=== PATIENT | female | born 1970 | race Caucasian/White ===

== ENCOUNTER 2020-07-29 08:56 | Inpatient (IN) | payer OTHER ==
[~2020-07-29] VITALS: Ht 162.6 cm; Wt 99.0 kg
[2020-07-29 09:15] LABS: BASOPHILS ABSOLUTE AUTO 0.06 K/mm3 (0.00-0.23); BASOPHILS PERCENT AUTO 0 % (0-2); EOSINOPHILS ABSOLUTE AUTO 0.07 K/mm3 (0.00-0.68); EOSINOPHILS PERCENT AUTO 0 % (0-6); Hemoglobin 8.7 g/dL (11.5-16.0); IMMATURE GRAN ABSOLUTE AUTO 0.09 K/mm3 (0.00-0.10); IMMATURE GRAN PERCENT AUTO 1 % (0-1); LYMPHOCYTES ABSOLUTE AUTO 1.34 K/mm3 (0.84-5.20); LYMPHOCYTES PERCENT AUTO 8 % (21-46); MONOCYTES ABSOLUTE AUTO 1.09 K/mm3 (0.16-1.47); MONOCYTES PERCENT AUTO 7 % (4-13); Mean Corpuscular HGB 19.8 pg (26.0-34.0); Mean Corpuscular HGB Conc 28.1 g/dL (31.5-36.5); Mean Corpuscular Volume 71 fL (80-100); Mean Platelet Volume 8.6 fL (9.1-12.4); NEUTROPHILS PERCENT AUTO 84 % (41-73); Platelet Count 430 K/mm3 (150-400); RDW Coefficient Variation 17.7 % (11.7-14.2); RDW Standard Deviation 43.8 fL (35.1-46.3); White Blood Cell Count 16.55 K/mm3 (4.00-11.30)
[2020-07-29 09:29] LABS: International Normalized Ratio 0.98; Prothrombin Time Results 10.5 Sec (9.7-11.5)
[2020-07-29 09:46] LABS: Alanine Aminotransfer (ALT/SGP 35 U/L (12-78); Albumin, Blood 3.8 g/dL (3.4-5.0); Albumin/Globulin Ratio 0.9 (0.8-1.8); Alk Phos 74 U/L (50-136); Anion Gap 3 mmol/L (6-16); Aspartate Aminotrans (AST/SGOT 19 U/L (12-37); Bilirubin, Total 0.3 mg/dL (0.1-1.0); Blood Urea Nitrogen 11 mg/dL (8-24); Bun/Creatinine Ratio 21.4 (12.0-20.0); CO2, Blood 25 mmol/L (21-32); Calcium, Blood 8.8 mg/dL (8.5-10.1); Chloride, Blood 109 mmol/L (98-108); Creatinine, Blood 0.52 mg/dL (0.40-1.00); Globulin, Blood 4.2 g/dL (2.2-4.0); Glomerular Filtration Rate >60 (60-); Glucose, Blood 111 mg/dL (70-99); Sodium, Blood 137 mmol/L (136-145)
[2020-07-29 10:33] LABS: Source, Urine Catheter
[2020-07-29 10:38] LABS: Bilirubin, Urine Neg (Neg); Blood, Urine 1+ (Neg); Glucose Qualitative, Urine Neg (Neg); Ketones, Urine 2+ (Neg); Leukocyte Esterase, Urine Neg (Neg); Nitrite, Urine Neg (Neg); Protein, Urine 2+ (Neg); Urobilinogen, Urine NORM (Normal)
[2020-07-29 10:50] LABS: Appearance, Urine Clear (Clear); Color, Urine Yellow (P-Yellow)
[2020-07-29 10:51] LABS: Squamous Epithelial Cells Few /hpf (Few)
[2020-07-29 10:52] LABS: Bacteria Mod /hpf; Mucus Light (0-Heavy)
[2020-07-29 10:53] LABS: U Amphetamine Screen Not Detected; U Barbituate Screen Not Detected; U Benzodiazapine Screen Not Detected; U Buprenorphine Screen Not Detected; U Cannabinoids Screen Not Detected; U Cocaine Screen Not Detected; U Methadone Screen Not Detected; U Methamphetamine Screen Not Detected; U Opiates Screen Not Detected; U Oxycodone Screen Not Detected; U Phencyclidine Screen Not Detected; U Propoxyphene Screen Not Detected
[2020-07-29] MEDS ORDERED: EFFEXOR XR150 MG PO (11:35)
[2020-07-29] MEDS ORDERED: SYNTHROID88 MCG PO (11:36)
[2020-07-29] MEDS ORDERED: BUPROPION XL150 M1 PO (11:36)
[2020-07-29 11:38] LABS: Creatine Kinase MB 1.3 ng/mL (0.0-3.6); Creatine Kinase MB Index 0.9 (0.0-4.0)
[2020-07-29 11:47] LABS: IMMATURE RETIC FRACTION 36.4 % (2.3-16.0); RETICULOCYTE ABSOLUTE 0.1048 M/mm3 (0.0200-0.1100); RETICULOCYTE COUNT PERCENT 2.41 % (0.50-2.50)
[2020-07-29 12:07] LABS: Percent Saturation 4.2 % (15.0-50.0)
--- NOTE | 2020-07-29 18:50 | NUR ---
SHIFT SUMMARY ALEE ARRIVED AROUND 1315 FROM ER. MOM VISITED THIS AFTERNOON. PT COMPLAINED OF HEADACHE AND GOT RECTAL TYLENOL AND GOT IV ZOFRAN FOR NAUSEA TO GOOD EFFECT. EYES NOT TRACKING, BUT DIFFICULT TO ASSESS DUE TO PT'S LETHARGY. PT UNABLE TO MOVE OR SENSE L SIDE. BUTTOCKS HAVE RASH, PT SAYS IT IS HER BASELINE FOLICULITIS. PT ORIENTED BUT FORGETFUL; SLURRED SPEECH. STRICT NPO UNTIL SPEECH EVALS HER. STARTED OUT AFTERNOON VERY LETHARGIC BUT HAS WOKEN UP MORE THIS EVENING. PER VERBAL ORDER FROM DR MCNAIR, PT NEEDS A ONE TIME ASPIRIN DOSE OF [address] FROM 2100 TONIGHT IS NEGATIVE FOR HEMHORRAGE. IF IT IS NEGATIVE, ALSO START ASPIRIN 81MG DAILY EITHER PO IF SPEECH ALLOWS OR RECTALLY. JOYA INTACT AND DRAINING. CALL LIGHT IN REACH, FREQUENT CHECKS, WCTM
[2020-07-30 04:15] LABS: BASOPHILS ABSOLUTE AUTO 0.09 K/mm3 (0.00-0.23); BASOPHILS PERCENT AUTO 1 % (0-2); EOSINOPHILS ABSOLUTE AUTO 0.27 K/mm3 (0.00-0.68); EOSINOPHILS PERCENT AUTO 2 % (0-6); Hematocrit 27.3 % (33.0-51.0); Hemoglobin 7.3 g/dL (11.5-16.0); IMMATURE GRAN ABSOLUTE AUTO 0.06 K/mm3 (0.00-0.10); IMMATURE GRAN PERCENT AUTO 1 % (0-1); LYMPHOCYTES ABSOLUTE AUTO 1.57 K/mm3 (0.84-5.20); LYMPHOCYTES PERCENT AUTO 14 % (21-46); MONOCYTES ABSOLUTE AUTO 0.99 K/mm3 (0.16-1.47); MONOCYTES PERCENT AUTO 9 % (4-13); Mean Corpuscular HGB 19.3 pg (26.0-34.0); Mean Corpuscular HGB Conc 26.7 g/dL (31.5-36.5); Mean Corpuscular Volume 72 fL (80-100); Mean Platelet Volume 8.9 fL (9.1-12.4); NEUTROPHILS ABSOLUTE AUTO 8.29 K/mm3 (1.96-9.15); NEUTROPHILS PERCENT AUTO 74 % (41-73); NRBC ABSOLUTE 0.05 K/mm3 (0.00-0.02); NRBC Auto 0.4 /100 WBC (0.0-0.2); Platelet Count 380 K/mm3 (150-400); RDW Coefficient Variation 18.1 % (11.7-14.2); RDW Standard Deviation 46.4 fL (35.1-46.3); Red Blood Cell Count 3.79 M/mm3 (3.80-5.20); White Blood Cell Count 11.27 K/mm3 (4.00-11.30)
--- NOTE | 2020-07-30 04:36 | NUR ---
ASSOCIATE BIOLOGICAL SALES SUMMARY PT NOT GIVEN HER [address] SCAN RESULTS TO RULE OUT A BLEED DID NOT COME BACK THIS SHIFT. PT HAS BEEN LETHARGIC DURING THIS SHIFT BUT IS AROUSABLE WITH SPEECH. THE PT RAMBLES WITH INCOHERENT SPEECH THAT IS UNRELATED TO THE CONVERSATION. LEFT SIDE IS STILL FLACCID BUT PT HAS POSITIVE BABINSKI REFLEX WHEN THE BOTTOM OF HER LEFT FOOT IS BRUSHED. PT HAS RIGHT SIDED GAZE AND HER VISION APPEARS SEVERELY IMPAIRED SHE CANNOT MAKE OBJECTS IN FRONT OF HER. PT HAS DENIED ANY PAIN THIS SHIFT AND HAD SOME MILD NAUSEA W NO EMESIS AT THE START OF THE SHIFT. PT HAS HAD NO PROBLEMS WITH HER SECRETIONS AND IS BREATHING UNLABORED. PT SLEPT MOST OF THE NIGHT W CALL LIGHT ON R SIDE, ROMINA.
[2020-07-30 04:39] LABS: Alanine Aminotransfer (ALT/SGP 24 U/L (12-78); Albumin/Globulin Ratio 0.9 (0.8-1.8); Alk Phos 59 U/L (50-136); Anion Gap 6 mmol/L (6-16); Aspartate Aminotrans (AST/SGOT 14 U/L (12-37); Bilirubin, Total 0.4 mg/dL (0.1-1.0); Blood Urea Nitrogen 9 mg/dL (8-24); Bun/Creatinine Ratio 13.8 (12.0-20.0); CHOL/HDL RATIO 4.3; CO2, Blood 24 mmol/L (21-32); Calcium, Blood 7.3 mg/dL (8.5-10.1); Chloride, Blood 114 mmol/L (98-108); Cholesterol 163 mg/dL (50-200); Creatinine, Blood 0.65 mg/dL (0.40-1.00); Globulin, Blood 3.5 g/dL (2.2-4.0); Glomerular Filtration Rate >60 (60-); Glucose, Blood 96 mg/dL (70-99); HDL Cholesterol 38 mg/dL (>39); LDL/HDL RATIO 2.6; Low Density Lipoprotein Chol 99 mg/dL (0-110); Potassium, Blood 3.4 mmol/L (3.5-5.5); Sodium, Blood 144 mmol/L (136-145); Total Protein, Blood 6.5 g/dL (6.4-8.2); Triglycerides 129 mg/dL (30-160); Very Low Density Lipoprot Chol 25 mg/dL (6-32)
--- NOTE | 2020-07-30 10:56 | NUR ---
CARE COORDINATION REFERRAL - ADMIT: 07/29/20 DISCHARGE: DX: STROKE CC: ANDREAS CALL: RESIDENCE: HOME CAREGIVER: SELF DX: HX ALCOHOLISM, HYPERLIPIDEMIA, PTSD, DEPRESSION, ANXIETY, SEE LIST DME: NONE CCM: NONE HOME HEALTH: NONE
--- NOTE | 2020-07-30 12:08 | NUR ---
PATIENT GAVE THIS STUDENT NURSE PERMISSION TO PROVIDE CARE TODAY 07/30/2020.
--- NOTE | 2020-07-30 16:44 | NUR ---
SHIFT SUMMARY PT AAOX4 DURING SHIFT. SLEEPING AND UNABLE TO ANSWER QUESTIONS AT START OF SHIFT BUT CURRENTLY SLOW TO RESPOND BUT APPROPRIATE. WILL FALL ASLEEP WHILE TALKING AT TIMES. USES SHORT SENTENCES. C/O HENRIQUEZ ONCE DURING SHIFT. PRN TYLENOL GIVEN. PT CAN HAVE MEDS WITH APPLESAUCE ONE AT A TIME PER SPEECH, NPO OTHERWISE. PT DOES WELL REPOSITIONING IN BED, HELPS WITH ROLLING. NO BM DURING SHIFT. REMAINS ON ROOM AIR.
--- NOTE | 2020-07-31 04:27 | NUR ---
SPECIAL PROCEDURE TECHNOLOGIST SUMMARY PT REMAINS OBTUNDED THROUGH OUT THE SHIFT WAKING TO SPEECH BUT IS UNABLE TO STAY AWAKE TO HAVE CONVERSATION. PT RECIEVED ONE 20 MEQ POTASSIUM AND IRON THIS SHIFT. VITAL SIGNS HAVE REMAINED STABLE AND O2 SATS >92% ON RM AIR. LOVENOX STARTED THIS SHIFT PER ORDER. NS RUNNING AT 75ML/HR, ORAL CARE PROVIDED, WCTM.
[2020-07-31 04:33] LABS: BASOPHILS ABSOLUTE AUTO 0.08 K/mm3 (0.00-0.23); BASOPHILS PERCENT AUTO 1 % (0-2); EOSINOPHILS ABSOLUTE AUTO 0.33 K/mm3 (0.00-0.68); EOSINOPHILS PERCENT AUTO 3 % (0-6); Hematocrit 30.7 % (33.0-51.0); Hemoglobin 8.2 g/dL (11.5-16.0); IMMATURE GRAN ABSOLUTE AUTO 0.07 K/mm3 (0.00-0.10); IMMATURE GRAN PERCENT AUTO 1 % (0-1); LYMPHOCYTES ABSOLUTE AUTO 1.71 K/mm3 (0.84-5.20); LYMPHOCYTES PERCENT AUTO 15 % (21-46); MONOCYTES ABSOLUTE AUTO 1.13 K/mm3 (0.16-1.47); MONOCYTES PERCENT AUTO 10 % (4-13); Mean Corpuscular HGB 19.2 pg (26.0-34.0); Mean Corpuscular HGB Conc 26.7 g/dL (31.5-36.5); Mean Corpuscular Volume 72 fL (80-100); Mean Platelet Volume 8.7 fL (9.1-12.4); NEUTROPHILS ABSOLUTE AUTO 8.46 K/mm3 (1.96-9.15); NEUTROPHILS PERCENT AUTO 72 % (41-73); NRBC ABSOLUTE 0.03 K/mm3 (0.00-0.02); NRBC Auto 0.3 /100 WBC (0.0-0.2); Platelet Count 343 K/mm3 (150-400); RDW Coefficient Variation 18.1 % (11.7-14.2); RDW Standard Deviation 46.5 fL (35.1-46.3); Red Blood Cell Count 4.27 M/mm3 (3.80-5.20); White Blood Cell Count 11.78 K/mm3 (4.00-11.30)
[2020-07-31 04:53] LABS: Alanine Aminotransfer (ALT/SGP 22 U/L (12-78); Albumin, Blood 3.1 g/dL (3.4-5.0); Albumin/Globulin Ratio 0.8 (0.8-1.8); Alk Phos 65 U/L (50-136); Anion Gap 6 mmol/L (6-16); Aspartate Aminotrans (AST/SGOT 9 U/L (12-37); Bilirubin, Total 0.4 mg/dL (0.1-1.0); Blood Urea Nitrogen 8 mg/dL (8-24); CO2, Blood 24 mmol/L (21-32); Chloride, Blood 111 mmol/L (98-108); Creatinine, Blood 0.67 mg/dL (0.40-1.00); Globulin, Blood 4.1 g/dL (2.2-4.0); Glomerular Filtration Rate >60 (60-); Glucose, Blood 92 mg/dL (70-99); Potassium, Blood 3.8 mmol/L (3.5-5.5); Sodium, Blood 141 mmol/L (136-145); Total Protein, Blood 7.2 g/dL (6.4-8.2)
--- NOTE | 2020-07-31 07:15 | NUR ---
ASSUMED CARE: PT RESTING QUIETLY IN BED. NSR AT 75 ON TELE. ROUSES EASILY AND SAYS A FEW WORDS TO STAFF THEN FALLS RIGHT BACK TO SLEEP. NO ACUTE NEEDS OR CONCERNS AT THIS TIME.
[2020-07-31 11:09] LABS: ANA DIRECT Negative (Negative)
--- NOTE | 2020-07-31 18:06 | NUR ---
SHIFT SUMMARY: PT WORKED WITH PT/OT/ST TODAY. RECOMMENDATIONS ARE FOR IRU FACILITY. PT'S MOTHER WAS AT BEDSIDE AND WAS UPDATED. FORMS IN [address] FOR PT'S FMLA. PT IS MEDICAL STATUS. HAS BEEN LETHARGIC T/O SHIFT BUT ROUSES EASILY. NO FURTHER NEEDS OR CONCERNS AT THIS TIME.
--- NOTE | 2020-08-01 05:02 | NUR ---
Patient arrived from PCU at 1930 to room 355. Alert and oriented X3 with complaint of right sided neck pain. warm blanket placed under neck while a kpad was set up for patient. Pt. not only tolerated repositionings at night, she was actually able to assist the staff with turning. Left upper and lower extremities both have no response to touch or the ability to grasp or move limbs independently. Speech is garbled, but easily understandable. Ultimately, plan would be to get her into an intensive rehab unit as soon as she is able to go.
--- NOTE | 2020-08-01 15:34 | NUR ---
08/01/20 Reviewed hospitality managermanager merchandising from Carmen, She has not contacted [facility] yet, was not aware due to not listed on the check list and no hand off conversation. She will try to get to it today or give to Evelyn to complete on Thursday. cp Dr Mays will complete [place] paperwork , on front of chart. cp 07/31/20-* per chart review with Dr. Mays, pt could potentially discharge on . Due to the severity of her stroke, she will need inpatient neuro rehab.-[facility] SNF check list was completed and given to Betina, Carmen was assigned as case management manager. Carmen was not available for hand off at the time of assignment. Check list was left on her desk. patient preference is [facility]. cp
--- NOTE | 2020-08-01 16:30 | NUR ---
Spiritual care note: Lashawn wanted prayer and responded well to spiritual encouragement. her mom was at bedisde and seemed very loving /devoted. Both express hope and a deep nikki in God's power to heal. They were appreciative of spiritual support. I will remain available.
--- NOTE | 2020-08-01 18:38 | NUR ---
SHIFT SUMMARY- PT ALERT AND ORIENTED TO SELF AND FAMILY. PT HAS HAD NO C/O PAIN T/O THE SHIFT TODAY. PT HAS SEVERE LEFT SIDED DEFICITE WITH NEGLECT, GAZE RIGHT NOTED ON ASSESSMENT. TELE RUNNING NSR PER ORDERLY. PT IV INFILTRATED IN THE LEFT ARM, NEW ONE PLACED IN THE RIGHT ARM BY SHIELD OPERATOR ALBINO. PLAN IS FOR EVENTUAL DC TO IRU IN [place] PER FAMILY. FMLA PAPERWORK IS IN THE PT CHART, DR AWARE AND WILL PICK IT UP TOMORROW. WILL PASS ON TO NIGHT RN IN REPORT.
--- NOTE | 2020-08-02 05:12 | NUR ---
DIRECTOR OF HEALTH CARE MARKETING SUMMARY PT HAS BEEN SLEEPY MOST OF THE SHIFT. CONTINUES TO HAVE L SIDE HEMIPARESIS. RIGHT SIDE WEAKNESS. PT STATES SHE IS ABLE TO FEEL TOUCH WHEN RN ASSESSES L SIDE. HOWEVER, WHEN NURSE ASKED PT WHAT SIDE DOES SHE FEEL IM TOUCHING ON PT RESPONDS SHE COULD FEEL THE RIGHT SIDE BEING TOUCHED WHEN NURSE WAS TOUCHING ON LEFT SIDE. LEFT SIDE DROOP WITH SLOW SPEECH. VSS. MEDICATED ONCE FOR HEADACHE WITH RECTAL TYLENOL. Q2 REPOSITION PROVIDED. VSS. PT IS ORIENTED X4. CALL LIGHT WITHIN REACH, BED ALARM IN PLACE. WCC.
--- NOTE | 2020-08-02 11:13 | NUR ---
PT HAD A FUL BEDBATH WITH HAIR WASH, REPOSITIONED TO SITTING UP HIPS FLOATED MAT IN HER HAIR WAS WASHED AND COMBED OUT. PT CAME TO DO BED EXERCISES WITH THE PT. PT VERY TIRED AFTER ALL THE ACTIVITY. PHYSICAL THERAPY ARE CONTINUEING TO RECOMEND INPATIENT REHAB FOR THIS PT.
--- NOTE | 2020-08-02 12:08 | NUR ---
PT HAS RECIEVED SEVERAL CALLS FROM, HER NOW EX-FIANCE. PT SEEMED TO BE A LITTLE DISTRESSED AND WAS HEARD ASKING HIM TO STOP CALLING HER AND HARRASSING HER. SPOKE TO HER ABOUT THE SITUATION AND HE IS NO LONGER ALLOWED TO RECIEVE INFORMATION. CALLED MEDICAL RECORDS TO HAVE HIS NAME REMOVED FROM HER FACE SHEET, PER THE PT REQUEST. PT STATED HER MOTHER AND BROTHER ARE TO MAKE MEDICAL DECISIONS FOR HER SHE FEELS THAT THEY HAVE HER BEST INTERESTS AT HEART. SPOKE TO HER ABOUT MAKING HER RECORDS CONFIDENTIAL AND SHE AGREED BUT WANTED RN TO SPEAK TO HER MOTHER TO ENSURE SHE WAS UNDERSTANDING WHAT THAT MEANT. MOTHER AGREED THAT WOULD BE THE WAY TO GO. PT WANTS TO BE SURE HER MOTHER CAN RECIEVE INFORMATION AND CALL HER AND COME IN TO SEE HER. CALLED THE SCREENER THERE IS A NOTE TO LET THE PT MOTHER IN.
--- NOTE | 2020-08-02 16:47 | NUR ---
SHIFT SUMMARY- PT HAS HAD NO ACUTE CHANGES T/O THE DAY. Q2 TURNS PT IS ABLE TO TOLLERATE. PT DID WORK WITH PHYSICAL, OCCUPATIONAL AND SPEECH THERAPIESTODAY. PT WAS SWITCHED TO CONFIDENTIAL FOR PERSONAL ISSUES SEE PREVIOUS NOTES FOR DETAILS. PT MOTHER IS THE ONLY VISITOR PERMITTED PER THE PT. PT STATES SHE WANTS HER MOTHER AND BROTHER TO BE HER DECISION MAKERS IF NEEDED.
[2020-08-03 05:58] LABS: Anion Gap 8 mmol/L (6-16); Blood Urea Nitrogen 8 mg/dL (8-24); Bun/Creatinine Ratio 13.5 (12.0-20.0); CO2, Blood 22 mmol/L (21-32); Calcium, Blood 8.1 mg/dL (8.5-10.1); Chloride, Blood 109 mmol/L (98-108); Creatinine, Blood 0.59 mg/dL (0.40-1.00); Glomerular Filtration Rate >60 (60-); Glucose, Blood 89 mg/dL (70-99); Potassium, Blood 3.9 mmol/L (3.5-5.5); Sodium, Blood 139 mmol/L (136-145)
[2020-08-03 06:38] LABS: BASOPHILS ABSOLUTE AUTO 0.08 K/mm3 (0.00-0.23); BASOPHILS PERCENT AUTO 1 % (0-2); EOSINOPHILS ABSOLUTE AUTO 0.62 K/mm3 (0.00-0.68); EOSINOPHILS PERCENT AUTO 5 % (0-6); Hematocrit 30.4 % (33.0-51.0); Hemoglobin 8.6 g/dL (11.5-16.0); IMMATURE GRAN ABSOLUTE AUTO 0.33 K/mm3 (0.00-0.10); IMMATURE GRAN PERCENT AUTO 2 % (0-1); LYMPHOCYTES ABSOLUTE AUTO 1.68 K/mm3 (0.84-5.20); LYMPHOCYTES PERCENT AUTO 12 % (21-46); MONOCYTES ABSOLUTE AUTO 1.25 K/mm3 (0.16-1.47); MONOCYTES PERCENT AUTO 9 % (4-13); Mean Corpuscular HGB 20.4 pg (26.0-34.0); Mean Corpuscular HGB Conc 28.3 g/dL (31.5-36.5); Mean Corpuscular Volume 72 fL (80-100); Mean Platelet Volume 9.3 fL (9.1-12.4); NEUTROPHILS ABSOLUTE AUTO 9.95 K/mm3 (1.96-9.15); NEUTROPHILS PERCENT AUTO 71 % (41-73); NRBC ABSOLUTE 0.18 K/mm3 (0.00-0.02); NRBC Auto 1.3 /100 WBC (0.0-0.2); Platelet Count 283 K/mm3 (150-400); RDW Coefficient Variation 19.8 % (11.7-14.2); RDW Standard Deviation 45.8 fL (35.1-46.3); Red Blood Cell Count 4.21 M/mm3 (3.80-5.20); White Blood Cell Count 13.91 K/mm3 (4.00-11.30)
--- NOTE | 2020-08-03 14:49 | NUR ---
ADMIT: 07/29/20 DISCHARGE: DX: Stroke CC: SUMMARY:Admit: 07/29/20 08/03/20- Spoke with pt and her mom. Informed them that [facility] in [place] denied pt at this time. Discussed that there were concerns about pt's progress with therapy and no d/c plan after therapy. They are agreeable to referrals being sent to [facility] in [place]. Mom and daughter stated that after therapy, pt would either return to her home or to her mom's home if she is not able to be by herself. Discussed applying for medicare for patient. Updated Fylecia with [facility], she clarified that [facility] was concerned about the level of patient's participation in therapy and the they recommended that the pt go to SNF prior to IRU. The SNF is requiring post d/c plan once she discharges from them. Informed [facility], that plan would be to go to IRU. [facility] brought up concerns about the mom's ablility to care for pt. -anna
--- NOTE | 2020-08-03 17:20 | NUR ---
PT TO BEDSIDE CHAIR WITH PHYSICAL THERAPY THIS MORNING, PT WAS ABLE TO STAND AND PIVOT TO CHAIR WITH ASSISTANCE. TELE WAS DISCONTINUED, IV MEDS CHANGED TO PO PT IS TAKING MEDS WHOLE WITH APPLESAUCE. SHE RETURNED TO BED AROUND 1430, KATIE LIFT REQUIRED TO RETURN TO BED. PT WAS VERY TIRED. NO ACUTE CHANGES NOTED, WILL CONTINUE TO MONITOR AND REPORT TO ONCOMING CECELIA
--- NOTE | 2020-08-04 04:23 | NUR ---
STEEL FITTER SUMMARY PT A&OX3, ABLE TO MAKE NEEDS KNOWN. PLEASANT AND COOPERATIVE TO CARE. NO C/O PAIN OR ANY DISCOMFORT THIS SHIFT. DENIES CP, SOB OR N&V. PT ABLE TO TAKE MEDS ONE AT A TIME W/ APPLESAUCE. NO EPISODES OF POCKETING NOTED THIS SHIFT. PT REQUIERES MAX ASSISTANCE WITH BED MOBILITY, Q2 TURNS. NO ACUTE CHANGES NOTED TO PATIENT THIS SHIFT. BED AT LOWEST POSITION. CALL LIGHT WITHIN REACH.
--- NOTE | 2020-08-04 17:22 | NUR ---
SHIFT SUMMARY PT AxOx4 WITH INTERMITTENT CONFUSION. PLEASANT AND COOPERATIVE WITH CARE. PT WORKED WITH PHYSICAL THERAPY TODAY. UP IN CHAIR FOR AFTERNOON. 2 PERSON ASSIST FOR TRANSFER WITH STAND AND PIVOT OR MECH LIFT. Q2 TURNS/REPOSITIONING. JOYA CATHETER DC'D. IV FLUIDS DC'D. BOWEL CARE INITIATED AFTER PT REPORTED NO BM x7 DAYS. STOOL SPECIMEN UNCOLLECTED. PT STILL ON SWALLOWING PRECAUTIONS. UPDATED TO SELF FEED TODAY. FAMILY MEMBER IN FOR VISIT TODAY, UPDATED ON PLAN OF CARE. CURRENTLY RESTING IN BED WITH CALL LIGHT IN REACH. VITALS REVIEWED. PT DENIES ANY NEEDS AT THIS TIME.
--- NOTE | 2020-08-04 23:20 | NUR ---
CALL TO HOSPITALIST / GROSS HEMATURIA: PT FIRST VOID SINCE CATH WAS REMOVED TODAY WAS AT 1900. HAS PROGRESSIVELY CONTAINED MORE BLOOD. PT IS VOIDING. SPOKE W/ DR. LEW. CONT TO MONITOR THAT PT IS VOIDING. BLADDER SCAN PRN AND PLACE IRRIGATION CATHETER IF >300 MLS.
[2020-08-04 23:47] LABS: Stool Occult Bld Immuno 1 Positive (NEGATIVE)
--- NOTE | 2020-08-05 06:16 | NUR ---
SHIFT SUMMARY: VSS. AFEB. AA0X4. [place] [facility] R LEG WITH 3 MAX ASSIST AND GAIT BELT, PT DID NOT BEAR WT DURING T/F AND R LEG BUCKLED REPEATEDLY. HAS BEEN CONTINENT/INCONTINENT OF URINE. PT WAS ABLE TO HAVE A CONTINENT BM TONIGHT. +FOST. GI CONSULT CALLED IN PER MD ORDER. POST FALL LACERATION ON L SIDE OF HEAD IS CLOTTED AND ESTELITA. PT STATES L RIBS STILL SORE, BUT NO BRUISING OBSERVED. L HEMIPARESIS IS UNCHANGED. PT REPORTING NUMBNESS OF L FACE AND L UPPER AND LOWER EXTREMITIES, BUT IS ABLE TO FEEL PRESSURE. EYES GAZE TO THE RIGHT. POST FALL STAT HEAD CT AND X-RAY OF L RIBS COMPLETED. PT IS SLEEPING AT THIS TIME BUT WAKES UP EASILY W/VERBAL STIMULI. PT HAS BEEN ABLE TO VOID TONIGHT, MOST RECENT LARGE INCONTINENT VOID AT 0110 NOTED TO BE A EYE TECHNICIAN PINK IN COLOR. PT DENIES BEING ON MENSES AND BLOOD HAD BEEN OBSERVED TO BE BLOOMING FROM URETHRAL MEATUS. WCTM VOIDING AND S/S HEMATURIA.
--- NOTE | 2020-08-05 18:57 | NUR ---
SHIFT SUMMARY ALEE COMPLAINED OF R SHOULDER PAIN AND HEADACHE TODAY, GOT TYLENOL AND HEAT PACK WHICH HELPED. MEAL SET UP PROVIDED, ATE MEALS INDEPENDENTLY. INCONTINENT URINE, CHANGED REGULARLY. KOSTAS RED BLOOD NOTED TWICE, LIKELY FROM URETHRA, PT STATES IT STARTED HAPPENING FROM THE TIME THAT HER JOYA WAS REMOVED YESTERDAY. MOTHER VISITED HER. DR CERON CAME AND CONSULTED, WE NEED ANOTHER STOOL SAMPLE FOR SPECIMEN. TOOK MEDS PRESCRIBED ONE AT A TIME IN APPLESAUCE. CALL LIGHT IN REACH, GIVING REPORT TO NIGHT NURSE
--- NOTE | 2020-08-06 03:52 | NUR ---
SHIFT SUMMARY: VSS. AFEB. AAOX3. COMMUNICATING NEEDS APPROPRIATELY USING CALL BUTTON. SPEECH CONT TO BE SLOW AND SLURRED SLIGHTLY. L FACIAL DROOP, L HEMIPARESIS. PT REPORTS L FACE AND UPPER AND LOWER EXT NUMBNESS. BOTH CONT AND INCONT OF PINK TINGED URINE TONIGHT. STREAKS OF KOSTAS BLOOD OBSERVED WHEN WIPING TABBY AREA. PT REPORTS DYSURIA. TOPICAL BENGAY APPLIED TO L SHOULDER EFFECTIVELY. PT DENIES HEADACHE. SLEEPING INTERMITTENTLY. BED ALARM ON. WCTM.
--- NOTE | 2020-08-06 18:34 | NUR ---
SHIFT SUMMARY PT A/O X3; PLEASANT AND COOPERATIVE WITH CARE. L SIDE FLACCID DUE TO CVA. L SIDE FACIAL DROOP AND SLURRED SPEECH PRESENT WELL. PATIENT IS ABLE TO MAKE NEEDS KNOWN AND IS CONT/INCONT. KOSTAS BLOOD IN BRIEF. PT REPORTED BURNING SENSATION WHILE URINATING SO A URINALYSIS WAS ORDERED. PT UP TO A CHAIR USING A KATIE LIFT. PT ORIENTED BUT AT TIMES HAS DIFFICULTY WITH HER MEMORY. VSS; WILL REPORT TO ONCOMING RN.
[2020-08-07 05:12] LABS: BASOPHILS ABSOLUTE AUTO 0.08 K/mm3 (0.00-0.23); BASOPHILS PERCENT AUTO 1 % (0-2); EOSINOPHILS ABSOLUTE AUTO 0.74 K/mm3 (0.00-0.68); EOSINOPHILS PERCENT AUTO 5 % (0-6); Hemoglobin 9.5 g/dL (11.5-16.0); IMMATURE GRAN ABSOLUTE AUTO 0.23 K/mm3 (0.00-0.10); IMMATURE GRAN PERCENT AUTO 1 % (0-1); LYMPHOCYTES PERCENT AUTO 10 % (21-46); MONOCYTES ABSOLUTE AUTO 1.34 K/mm3 (0.16-1.47); MONOCYTES PERCENT AUTO 8 % (4-13); Mean Corpuscular HGB 21.3 pg (26.0-34.0); Mean Corpuscular HGB Conc 27.9 g/dL (31.5-36.5); Mean Corpuscular Volume 76 fL (80-100); Mean Platelet Volume 9.1 fL (9.1-12.4); NEUTROPHILS ABSOLUTE AUTO 11.97 K/mm3 (1.96-9.15); NEUTROPHILS PERCENT AUTO 75 % (41-73); NRBC ABSOLUTE 0.07 K/mm3 (0.00-0.02); NRBC Auto 0.4 /100 WBC (0.0-0.2); Platelet Count 266 K/mm3 (150-400); RDW Coefficient Variation 25.3 % (11.7-14.2); RDW Standard Deviation 45.4 fL (35.1-46.3); Red Blood Cell Count 4.47 M/mm3 (3.80-5.20); White Blood Cell Count 15.96 K/mm3 (4.00-11.30)
[2020-08-07 05:46] LABS: Alanine Aminotransfer (ALT/SGP 47 U/L (12-78); Albumin, Blood 3.2 g/dL (3.4-5.0); Albumin/Globulin Ratio 0.7 (0.8-1.8); Alk Phos 125 U/L (50-136); Anion Gap 8 mmol/L (6-16); Aspartate Aminotrans (AST/SGOT 29 U/L (12-37); Bilirubin, Total 0.5 mg/dL (0.1-1.0); Blood Urea Nitrogen 11 mg/dL (8-24); CO2, Blood 25 mmol/L (21-32); Calcium, Blood 8.9 mg/dL (8.5-10.1); Chloride, Blood 104 mmol/L (98-108); Creatinine, Blood 0.69 mg/dL (0.40-1.00); Globulin, Blood 4.9 g/dL (2.2-4.0); Glomerular Filtration Rate >60 (60-); Glucose, Blood 96 mg/dL (70-99); Magnesium, Blood 2.1 mg/dL (1.6-2.4); Phosphorus, Blood 4.5 mg/dL (2.5-4.9); Potassium, Blood 4.1 mmol/L (3.5-5.5); Sodium, Blood 137 mmol/L (136-145); Total Protein, Blood 8.1 g/dL (6.4-8.2)
--- NOTE | 2020-08-07 07:56 | NUR ---
08/06/20- PT'S BROTHER NELLY GROVES CALLED REQUESTING UPDATE ON HIS SISTER. HE IS WORKING WITH HER MOM ON [facility] DECISIONS AT THIS TIME UNTIL THE PATIENT IS ABLE TO. UPDATED HIM ON WHAT IS GOING ON, WHAT WE ARE TRYING TO DO AND DISCUSSED REHAB FACILITIES. HE HAS ASKED THAT HE BE INCLUDED IN DISCUSSIONS. HIS NUMBER IS [phone]. PT'S MOM IS DOM GROVES [phone]. -KATERYNA 08/06/20- CONTACTED [facility], THEY HAVE A FEMALE BED AVAILABLE. SENT BACK FOR REVIEW. SPOKE WITH PT AND HER MOM ABOUT STATUS OF FINDING A PLACE. MOM IS UNHAPPY THAT HER DAUGHTER HAS NOT GOTTEN INTO A REHAB FACILITY. SHE WOULD LIKE TO TALK WITH THE DOCTOR. INFORMED AND HE WILL TALK WITH HER. TRIED TO CALL SNFS IN [place] WITH NO SUCCESS. -KATERYNA
--- NOTE | 2020-08-07 12:21 | NUR ---
08/07/20- called [facility] in [facility], they do not have a bed available today, but are reviewing pt's information and at this time they do not see any conflicts with the patient. Pt's information has been passed to the technical program manager for review and upon their approval, pt will be presented to the doctor. Was advised by Milana Torres, quality assurance coordinator, to call/text their facility on Thu and Thursday morning to see about bed availablity. Called and updated both mother and brother of patient. Mom is wondering when pt gets into one facility, if she could be transferred to a closer one. Informed mom, not sure of answer but can ask when I speak to facility next time. -anna
--- NOTE | 2020-08-07 18:22 | NUR ---
SHIFT SUMMARY PT IS A&O, KNOWS YEAR, , NAME, FAMILY, LOCATION. PT IS FORGETFUL AND IMPULSIVE IE WATNING TO TRANSFER SELF BEFORE STAFF IS READY TO ASSIST. PT TRASFERED TO CHAIR AND BACK 2 PERSON MAX ASSISTANCE. PT IS PLEASANT AND ACCEPTING OF CARE. SHE HAS L SIDE FLACCID, L FACIAL DROOP AND SLURRED SPEECH DUE. PT HAD A BM THIS SHIFT, [facility] REPORTED BLOOD IN URIN. PT IS CURENTLY ON MENSIS. UNABLE TO GET A CLEAN CATCH FOR URINALYSIS. PT CURENTLY SLEEPING, BED ALARM ON.
--- NOTE | 2020-08-07 20:38 | NUR ---
LAte entry for 08/07/2020 0658. PT 49 years old with acute rt MCA CVA continues with lt sided deficits. LT UE LT LE flaccid. Alert with some moderate confusion. @ max assist for transfersreported on day shift or lift. @ max for toileting & bed mobility. CO headace pain relieved by tylenol & bilat shoulder pain relieved by topical rub pedro mercado. No urine collected for UA, PT incontinent used bedpan x 1 but only drops out. High fall risk precautions continue. PT did not attempt to get out of bed.
--- NOTE | 2020-08-08 00:16 | NUR ---
late entry for 08/07/20 0715. PT is here since 07/29/20 with RT MCA CVA & continues with lt upper extremity & lt LE flaccidity. She overestimates her ability with lt side. She has no push pull or strenght LT UE LT LE but answers she is able. ROM to fingers & toes LT extremities. PT is aspiration risk with puree diet & feeding required. Incontient of urine, PT on menses. Attempted bedpan use to collect UA but PT unable to void on bedpan. Medicated for headache & bilat shoulder pain. Some inappropriate speech some nonsensical.
[2020-08-08 04:43] LABS: BASOPHILS ABSOLUTE AUTO 0.07 K/mm3 (0.00-0.23); BASOPHILS PERCENT AUTO 0 % (0-2); EOSINOPHILS ABSOLUTE AUTO 0.78 K/mm3 (0.00-0.68); EOSINOPHILS PERCENT AUTO 5 % (0-6); Hematocrit 33.4 % (33.0-51.0); Hemoglobin 9.5 g/dL (11.5-16.0); IMMATURE GRAN ABSOLUTE AUTO 0.22 K/mm3 (0.00-0.10); IMMATURE GRAN PERCENT AUTO 1 % (0-1); LYMPHOCYTES ABSOLUTE AUTO 1.66 K/mm3 (0.84-5.20); LYMPHOCYTES PERCENT AUTO 11 % (21-46); MONOCYTES PERCENT AUTO 9 % (4-13); Mean Corpuscular HGB 21.3 pg (26.0-34.0); Mean Corpuscular HGB Conc 28.4 g/dL (31.5-36.5); Mean Corpuscular Volume 75 fL (80-100); NEUTROPHILS ABSOLUTE AUTO 11.52 K/mm3 (1.96-9.15); NEUTROPHILS PERCENT AUTO 74 % (41-73); NRBC ABSOLUTE 0.04 K/mm3 (0.00-0.02); NRBC Auto 0.3 /100 WBC (0.0-0.2); RDW Coefficient Variation 25.7 % (11.7-14.2); RDW Standard Deviation 45.7 fL (35.1-46.3); Red Blood Cell Count 4.45 M/mm3 (3.80-5.20); White Blood Cell Count 15.65 K/mm3 (4.00-11.30)
[2020-08-08 05:12] LABS: Anion Gap 7 mmol/L (6-16); Blood Urea Nitrogen 13 mg/dL (8-24); Bun/Creatinine Ratio 20.5 (12.0-20.0); CO2, Blood 24 mmol/L (21-32); Calcium, Blood 8.8 mg/dL (8.5-10.1); Chloride, Blood 104 mmol/L (98-108); Creatinine, Blood 0.63 mg/dL (0.40-1.00); Ferritin, Serum 243 ng/mL (8-252); Glomerular Filtration Rate >60 (60-); Glucose, Blood 122 mg/dL (70-99); Iron Serum 34 ug/dL (50-170); Percent Saturation 9.4 % (15.0-50.0); Potassium, Blood 3.9 mmol/L (3.5-5.5); Sodium, Blood 135 mmol/L (136-145); Total Iron Binding Capacity 363 ug/dL (250-450)
[2020-08-08 05:24] LABS: Mean Platelet Volume 9.2 fL (9.1-12.4); Platelet Count 310 K/mm3 (150-400)
--- NOTE | 2020-08-08 15:00 | NUR ---
ADMIT: 07/29/20 DISCHARGE: DX: Stroke CC: SUMMARY: 08/08/20- Received message from Radha at [facility] ([phone]) requesting an update status on patient. She is having trouble with her phone and will call back tomorrow. Will speak with her about options for SNF and IRUs. -anna
--- NOTE | 2020-08-08 15:36 | NUR ---
Contacted [facility] to get update on packet send to see if they would accept pt once a bed is available. Spoke with Chacho, program services planner, she stated that they have no beds available and do not see one opening up in the near future.-anna
--- NOTE | 2020-08-08 16:32 | NUR ---
08/08/20- CALLED THE FOLLOWING FACILITIES LOOKING FOR BED AVAILABILITY from [phone].: LEFT MESSAGE ON [facility] MARGRET OLIVER [phone] [facility] [address] [phone] [facility] [phone] [facility] [phone] [facility] [phone] [facility] [phone] [facility] [phone] [facility] [phone] NO AVAILABILITY AT [facility] [phone] [facility] [phone] [facility] [phone]
--- NOTE | 2020-08-08 18:24 | NUR ---
NO ACUTE CHANGES TO PATIENT. LEFT SHOULDER XRAY THIS SHIF DUE TO PAIN . PT IS A MAX 2 ASSIST WHILE STABALIZING HER LEFT LEG. PT ABLE TO FEED SELF WITH RIGHT HAND . SHE IS ABLE TO VERBALIZE ANY COMPLAINTS . PT IS PLEASANT AND COOPERTIVE WITH CARES. CALL LIGHT WITHIN REACH.
[2020-08-08 23:31] LABS: Source, Urine Catheter
[2020-08-08 23:38] LABS: Appearance, Urine Clear (Clear); Bilirubin, Urine Neg (Neg); Blood, Urine 2+ (Neg); Color, Urine Yellow (P-Yellow); Glucose Qualitative, Urine Neg (Neg); Ketones, Urine 1+ (Neg); Leukocyte Esterase, Urine 2+ (Neg); Nitrite, Urine Neg (Neg); Protein, Urine 2+ (Neg); Specific Gravity, Urine 1.025 (1.003-1.022); Urobilinogen, Urine 1+ (Normal)
[2020-08-09 00:29] LABS: Bacteria Many /hpf; Squamous Epithelial Cells Rare /hpf (Few)
--- NOTE | 2020-08-09 05:17 | NUR ---
49 year old Female continues with lt hemiparesis Not as flaccid as previous 2 days. She continues with lt facial droop that interfears with oral intake. No stool for guiacc. CALL WORKER PERSON Agustina updated on PTs request for benadryl at HS & incontinent voids. Order to straight cath for UA C & S. Continues to be able to communicate. Does not usually use call escoto. Needs 2 max assist for bed mobilty stroke positioning. PT medicated with tylenol for CO back pain & used Danny Chauhan with helpful effect. Working with PT OT to mobilize. Fall & aspiration precautions.
--- NOTE | 2020-08-09 11:20 | NUR ---
08/09/20- Faxed a packet for review to in [place] [phone]; F: [phone] Left messages with: [facility] ([place])- [phone] [facility] ([place])- [phone] [facility] - [phone] [facility] [phone] [phone] [facility]
--- NOTE | 2020-08-09 13:11 | NUR ---
08/09/20- received call back from [facility], they have no beds available at this time. Received call from Radha with pt's insurance, [employer], requesting an update on status of pt. Informed her that calls have been places to several facilities and finding out that many facilities do not have beds available. Informed Radha that the hope is with an updated packet with more recent therapy notes will hopefully help finding placement. Asked Radha if there is anything that her insurance can do to help with placement, such as approve an out of network facility. She provided phone number for customer care: [phone].-kj
--- NOTE | 2020-08-09 15:50 | NUR ---
PT IS A/OX3, PLEASANT AND COOPERATIVE, SOMEWHAT ANXIOUS, THE PT APPEARS TO BE BREATHING EASILY ON RA AT THIS TIME, THE PT IS A STAND PIVOT TO THE CHAIR DUE TO LEFT SIDED DEFICITS, LEFT SIDE IS FLACID, THE PT WAS ASSISTED TO THE CHAIR TODAY AFTER BREAKFAST AND IS STILL IN THE RECLINER NOW, THE PTS MOTHER WAS IN TO SEE THE PT, THE PT WORKED WITH THE OCCUPATIONAL THERAPIST TODAY, THE PT WAS GIVEN TYLENOL AND JER SPRING APPLIED TO THE LEFT SHOULDER FOR PAIN, CALL LIGHT IN REACH WILL CONTINUE TO MONITOR AND ASSESS FOR CHANGES
--- NOTE | 2020-08-09 17:27 | NUR ---
Spiritual care note: Lashawn and I had a lengthy conversation today. She seemed to be slow to respond and had trouble finding words at times. She spoke about the recent loss of her dog, breaking up with her boyfriend, and her 10 years of sobriety. I provided theraputic listening, gentle senior living sales counselor, and prayer to good effect. We have an easy rapport. She is hopeful for a return to normal and states that she is willing to work hard to get there. She will benefit from continued senior living sales counselor/support. [facility] will remain available.
--- NOTE | 2020-08-09 19:31 | NUR ---
AWAKE. NOTE LEFT SIDE FACIAL DROOP. CALL LIGHT IN REACH. AGREES TO USE CALL LIGHT IF NEEDING TO GET OUT OF BED. RAILS UP X 2
[2020-08-10 04:55] LABS: BASOPHILS ABSOLUTE AUTO 0.07 K/mm3 (0.00-0.23); BASOPHILS PERCENT AUTO 1 % (0-2); EOSINOPHILS ABSOLUTE AUTO 0.55 K/mm3 (0.00-0.68); EOSINOPHILS PERCENT AUTO 5 % (0-6); Hematocrit 31.3 % (33.0-51.0); Hemoglobin 8.9 g/dL (11.5-16.0); IMMATURE GRAN ABSOLUTE AUTO 0.12 K/mm3 (0.00-0.10); IMMATURE GRAN PERCENT AUTO 1 % (0-1); LYMPHOCYTES PERCENT AUTO 15 % (21-46); MONOCYTES ABSOLUTE AUTO 1.27 K/mm3 (0.16-1.47); MONOCYTES PERCENT AUTO 12 % (4-13); Mean Corpuscular HGB Conc 28.4 g/dL (31.5-36.5); Mean Corpuscular Volume 77 fL (80-100); Mean Platelet Volume 9.2 fL (9.1-12.4); NEUTROPHILS ABSOLUTE AUTO 7.07 K/mm3 (1.96-9.15); NEUTROPHILS PERCENT AUTO 66 % (41-73); NRBC ABSOLUTE 0.03 K/mm3 (0.00-0.02); NRBC Auto 0.3 /100 WBC (0.0-0.2); Platelet Count 416 K/mm3 (150-400); RDW Coefficient Variation 26.1 % (11.7-14.2); RDW Standard Deviation 64.3 fL (35.1-46.3); Red Blood Cell Count 4.05 M/mm3 (3.80-5.20); White Blood Cell Count 10.68 K/mm3 (4.00-11.30)
[2020-08-10 05:16] LABS: Alanine Aminotransfer (ALT/SGP 68 U/L (12-78); Albumin, Blood 2.9 g/dL (3.4-5.0); Albumin/Globulin Ratio 0.6 (0.8-1.8); Alk Phos 208 U/L (50-136); Anion Gap 5 mmol/L (6-16); Aspartate Aminotrans (AST/SGOT 36 U/L (12-37); Bilirubin, Total 0.5 mg/dL (0.1-1.0); Blood Urea Nitrogen 13 mg/dL (8-24); CO2, Blood 26 mmol/L (21-32); Calcium, Blood 9.2 mg/dL (8.5-10.1); Chloride, Blood 104 mmol/L (98-108); Creatinine, Blood 0.77 mg/dL (0.40-1.00); Globulin, Blood 5.1 g/dL (2.2-4.0); Glomerular Filtration Rate >60 (60-); Glucose, Blood 88 mg/dL (70-99); Potassium, Blood 4.2 mmol/L (3.5-5.5); Sodium, Blood 135 mmol/L (136-145)
--- NOTE | 2020-08-10 06:27 | NUR ---
SHIFT SUMMARY HAS BEEN RSTING QUIETLY WITH FEW INTERRUPTIONS THIS SHIFT SINCE HS. TOLERATED TYLENOL AND ROUTINE MEDS IN APPLESAUCE WELL. LEFT SIDE REMAINS FLACCID BUT STATED THAT SHE CONTINUES TO HAVE FEELING IN SAID EXTREMITIES. INCONT X 1 THIS SHIFT. CALL LIGHT IN REACH.
--- NOTE | 2020-08-10 09:00 | NUR ---
08/10/20- [facility] They requested an updated packet on the pt to be sent this morning. Made follow up call and spoke with Milana, she does not see anything that would be a barrier to accepting the pt. She will have the pt reviewed and presented to regulatory compliance director and update after they meet. A bed would be available on Thursday next week. Called and updated brotherPawel. Tried to call mom but there was no answer.-anna
--- NOTE | 2020-08-10 11:58 | NUR ---
CARE COORDINATION REFERRAL - ADMIT: 07/29/20 DISCHARGE: DX: CVA CC: KWDONNA SUMMARY: 08/10/20- SPOKE WITH DRE WITH PT'S INSURANCE. SHE STATED THAT [facility] IS NOT IN NETWORK FOR THEM. SHE PROVIDED A LIST OF PLACES THAT COULD BE CONTACTED FOR PLACEMENT. IF NONE OF THESE FACILITIES ARE ABLE TO TAKE PT, THEN A FAX WOULD NEED TO BE SENT TO HEALTH CARE SERVICES AT [phone] WITH DOCUMENTATION OF DENIAL OF BED. THEN HER INSURANCE COULD POTENTIALLY PAY FOR THE FACILITY. [facility] ([phone]): LEFT MESG TWICE, NO ANSWER [facility]: ([phone]) FAXED PACKET [facility] ([phone]): LEFT MSG [facility] ([phone]): FAXED PACKET [facility] ([phone]): LEFT MSG [facility] ([phone]): NO BEDS [facility] ([phone]): FAXED [facility] ([phone]): FAXED PKT [facility] ([phone]): FAXED [facility]T [facility] ([phone]): [facility] ([phone])- [facility] ([phone])- [facility] ([phone])- [facility] ([phone])- NO BEDS [facility] ([phone])- NO BEDS [facility] ([phone])- NO BEDS
--- NOTE | 2020-08-10 13:15 | NUR ---
08/10/20- RECEIVED A CALL FROM [facility] IN [place], [place], THEY WILL ACCEPT THE PT. THEY REQUESTED THAT THE PT HAVE A COVID PCR TEST DONE TODAY AND RESULTS FAXED TO THEM [phone]. THEY DO TAKE ADMISSIONS ON WEEKENDS, SO TRANSPORTATION WILL BE SET UP FOR THE PT FOR TOMORROW MORNING. UPDATED PT'S MOM AND PROVIDED HER WITH THE ADDRESS OF THE FACILITY. DISCUSSED HAVING MOM COME IN PRIOR TO DISCHARGE TO GO OVER PAPERWORK WITH NURSE. CONTACTED NURSE AND UPDATED THEM ON STATUS OF PLACEMENT AND NEED FOR COVID TEST. DR. MCNAIR WILL ORDER THE TEST AND WILL BE ABLE TO DISCHARGE THE PT BY 10 TOMORROW. CONTACTED [facility] AND THEY WILL BE PICKING PT UP AT 10 TOMORROW. -KATERYNA
--- NOTE | 2020-08-10 13:17 | NUR ---
COVID PCR results need to be faxed to [facility] [phone] prior to discharge-anna
--- NOTE | 2020-08-10 17:02 | NUR ---
PT PLEASANT TODAY. NO C.O PAIN TODAY. DID GET OUT OF BED WITH PT TO WINDOW TO DO EXERCISES. 2 ASST. CONTINUES TO HAVE LEFT WEAKNESS. AND NOT NOTICING ON LEFT . LEFT DROOP FACIAL. TAKES PILLS WITH APPLESAUSE. POSITIONED TO RT OF MOUTH. TOLERATES WELL. [facility] COVID TEST IN AM PRIOR. NO OTHER CONCERNS TODAY. MOM IN TO SEE TODAY. BED IN LOW POSITION, CALL LITE IN REACH, BED ALARM ON FOR SAFETY
--- NOTE | 2020-08-10 21:35 | NUR ---
1945 PT RESTING COMFORTABLY; PTS LEFT ARM AND FOOT ARE FLACCID; ALERT AND ORIENTED X 4. 2100 PT TOOK ALL H.S. MEDS VIA [employer] ONE AT TIME.
--- NOTE | 2020-08-11 04:09 | NUR ---
SHIFT SUMMARY: 50 Y/O OBESE FEMALE SLEPT MINIMALLY ALL SHIFT; PT DENIES PAIN OR NAUSEA; PTS SPEECH GARBLED WITH PT HAVING DISORGANIZED THOUGHT PROCESS AT TIMES; PT INCONTINENT X 1 THIS SHIFT; PT PENDING POSSIBLE DISCHARGE TODAY [facility] [place], [place]; PTS LEFT SIDE BODY FLACCID; DENIES PAIN OR NAUSEA; BED ALARM APPLIED, BED LOW POSITION WITH CALL LIGHT AT SIDE.
[2020-08-11 06:55] LABS: Influenza A, PCR NEGATIVE (NEGATIVE); Influenza B, PCR NEGATIVE (NEGATIVE); Resp Syncytial Virus, PCR NEGATIVE (NEGATIVE); SARS-Cov-2 (COVID-19) PCR, MMC NEGATIVE (NEGATIVE)
--- NOTE | 2020-08-11 18:00 | NUR ---
PT UNABLE TO BE DISCHARGED TODAY D/T NO INSURANCE AUTH. NOT AVAILABLE UNTIL THURSDAY, PER CASE MANAGEMENT. PT LEFT LEG SWOLLEN, ULTRA SOUND DONE, + FOR LARGE CLOT. HEPARIN DRIP STARTED PER DR MCNAIR. WILL CONTINUE TO MONITOR AND REPORT TO ONCOMING RN
[2020-08-11 19:30] LABS: International Normalized Ratio 1.02; Prothrombin Time Results 10.9 Sec (9.7-11.5)
--- NOTE | 2020-08-11 23:20 | NUR ---
194 PT DIAGNOSED WITH LEFT DVT TODAY WITH HEPARIN ORDERED; AWAITING INITIAL PTT LAB RESULTS; PTS LEFT SIDE FLACCID; ALERT AND ORIENTED X 2, ABLE TO FOLLOW SIMPLE VERBAL COMMANDS.
--- NOTE | 2020-08-12 04:13 | NUR ---
SHIFT SUMMARY: 50 Y/O FEMALE RESTED COMFORTABLY ALL SHIFT; PTS STILL FLACCID LEFT SIDE OF BODY; PT NOTED TO HAVE INCREASED CONFUSION AND DISORGANIZED THOUGHT PROCESS THROUGHOUT NIGHT HOURS; PT WEARING YELLOW FALL RISK GOWN AND HAS BED ALARM APPLIED, BED LOW POSITION WITH CALL LIGHT AT SIDE; HEPARIN INFUSING WITHOUT ISSUE DUE RECENT DIAGNOSES LEFT DVT 08/11/20; DENIES CHEST PAIN OR SOB.
[2020-08-12 04:52] LABS: BASOPHILS PERCENT AUTO 1 % (0-2); EOSINOPHILS ABSOLUTE AUTO 0.55 K/mm3 (0.00-0.68); EOSINOPHILS PERCENT AUTO 5 % (0-6); Hematocrit 34.9 % (33.0-51.0); Hemoglobin 9.4 g/dL (11.5-16.0); IMMATURE GRAN ABSOLUTE AUTO 0.18 K/mm3 (0.00-0.10); IMMATURE GRAN PERCENT AUTO 2 % (0-1); LYMPHOCYTES ABSOLUTE AUTO 2.09 K/mm3 (0.84-5.20); LYMPHOCYTES PERCENT AUTO 19 % (21-46); MONOCYTES ABSOLUTE AUTO 1.19 K/mm3 (0.16-1.47); MONOCYTES PERCENT AUTO 11 % (4-13); Mean Corpuscular HGB 21.9 pg (26.0-34.0); Mean Corpuscular HGB Conc 26.9 g/dL (31.5-36.5); Mean Corpuscular Volume 81 fL (80-100); Mean Platelet Volume 8.7 fL (9.1-12.4); NEUTROPHILS ABSOLUTE AUTO 7.18 K/mm3 (1.96-9.15); NEUTROPHILS PERCENT AUTO 64 % (41-73); NRBC ABSOLUTE 0.03 K/mm3 (0.00-0.02); NRBC Auto 0.3 /100 WBC (0.0-0.2); Platelet Count 518 K/mm3 (150-400); RDW Coefficient Variation 27.7 % (11.7-14.2); RDW Standard Deviation 74.4 fL (35.1-46.3); White Blood Cell Count 11.29 K/mm3 (4.00-11.30)
[2020-08-12 05:16] LABS: Alanine Aminotransfer (ALT/SGP 53 U/L (12-78); Albumin, Blood 2.9 g/dL (3.4-5.0); Albumin/Globulin Ratio 0.6 (0.8-1.8); Alk Phos 198 U/L (50-136); Anion Gap 7 mmol/L (6-16); Aspartate Aminotrans (AST/SGOT 33 U/L (12-37); Bilirubin, Total 0.4 mg/dL (0.1-1.0); Blood Urea Nitrogen 13 mg/dL (8-24); Bun/Creatinine Ratio 18.9 (12.0-20.0); CO2, Blood 24 mmol/L (21-32); Calcium, Blood 9.2 mg/dL (8.5-10.1); Chloride, Blood 104 mmol/L (98-108); Creatinine, Blood 0.69 mg/dL (0.40-1.00); Globulin, Blood 5.1 g/dL (2.2-4.0); Glomerular Filtration Rate >60 (60-); Glucose, Blood 93 mg/dL (70-99); Potassium, Blood 4.3 mmol/L (3.5-5.5); Sodium, Blood 135 mmol/L (136-145)
[2020-08-12 11:45] LABS: Source, Urine Clean Catch
[2020-08-12 11:49] LABS: Bilirubin, Urine Neg (Neg); Blood, Urine 3+ (Neg); Glucose Qualitative, Urine Neg (Neg); Ketones, Urine Neg (Neg); Leukocyte Esterase, Urine 3+ (Neg); Nitrite, Urine Pos (Neg); Protein, Urine Neg (Neg); Urobilinogen, Urine NORM (Normal); pH, Urine 6.5 (5.0-8.0)
[2020-08-12 11:54] LABS: Appearance, Urine Cloudy (Clear); Color, Urine Yellow (P-Yellow)
[2020-08-12 11:55] LABS: White Blood Cells, Urine TNTC /hpf (0-5)
[2020-08-12 11:56] LABS: Squamous Epithelial Cells Few /hpf (Few)
[2020-08-12 11:57] LABS: Bacteria Many /hpf; Transitional Epithelial Cells Few /hpf (0-Rare)
[2020-08-12 13:17] LABS: Stool Occult Blood Guaiac 1 Neg (Neg)
--- NOTE | 2020-08-12 14:54 | NUR ---
HEPARIN HEP GTT RATE TITRATED, INCREASED TO 19 UNITS/HR OR 27.7 ML/HR ON THE PUMP. ADDITIONAL BOLUS OF 3700 UNITS ALSO GIVEN.
--- NOTE | 2020-08-13 00:46 | NUR ---
08/12/20 194 PT RESTING COMFORTABLY IN BED; CHEERFUL; ABLE FOLLOW SIMPLE VERBAL COMMANDS. 2100 PT TOOK ALL H.S. MEDS WHOLE IN APPLESAUCE WITH NO POCKETING NOTED BY THIS NURSE. 2300 RESTING COMMFORTABLY IN BED.
--- NOTE | 2020-08-13 03:42 | NUR ---
SHIFT SUMMARY: 50 Y/O OBESE FEMALE RESTED COMFORTABLY ALL SHIFT; DENIES PAIN OR NAUSEA; LEFT SIDE BODY FLACCID WITH NO MOVEMENTS NOTED; PT ALERT AND ORIENTED X 2, ABLE TO FOLLOW SIMPLE VERBAL COMMANDS; PT HAS PERIODS OF BRIEF CONFUSION AT TIMES THROUGHOUT NIGHT HOURS WITH REORIENTATION AND REDIRECTION PROVIDED BY STAFF; PT WEARING YELLOW FALL ALERT GOWN IN ROOM; HEPARIN GTT CONTINUES AT 30.7ML/HR WITH NEXT PTT DRAW SCHEDULED FOR 0900 TODAY (LAST PTT 63.6); BED ALARM APPLIED, BED LOW POSITION WITH CALL LIGHT AT SIDE; PT REQUIRES ASSISTANCE WITH ALL ADLS/IADLS.
[2020-08-13 11:08] LABS: ACT. PRT C RESIST W/FV DEFIC. 2.6 ratio (.); APTT 24.2 sec (.); DRVVT SCREEN SECONDS 38.3 sec (.); FACTOR VIII ACTIVITY 285 % (.); HEXAGONAL PHOSPHOLIPID NEUTRAL 0 sec (.); HOMOCYSTEINE 4.7 umol/L (.); PRT C ACTIVITY (CHROMOGENIC) 118 % (.)
--- NOTE | 2020-08-13 14:43 | NUR ---
08/13/20 Patient was not discharged to [facility] on Thursday due to no health insurance authorization. Evelyn ARMSTRONG asked Kristine Alegria MCM to request Auth today. I left a message for Ayesha at [facility] ([phone]) to try to arrange another discharge once insurance authorization is obtained. brendon I also met with Lashawn and updated her on current discharge status. brendon
--- NOTE | 2020-08-13 18:13 | NUR ---
ALERT. ORIENTED. FORGETFUL. LEFT SIDED FACIAL DROOP. PUPILS UNEQUAL.LEFT SIDE FLACID. 2 -3 MAX ASSIST FOR BSC. UNLABORED RESPIRATIONS. DOES NOT STAY ON TRACK WHEN GIVEN DIRECTIONS FOR MOVEMENT. HEPARIN IN FUSING. WCTM
--- NOTE | 2020-08-14 05:55 | NUR ---
SHIFT SUMMARY NO ACUTE CHANGES THIS SHIFT. AOX3. SLOW TO RESPOND. FOLLOWS SIMPLE DIRECTIONS. L EXTREMITIES FLACCID. L FACIAL DROOP. PUPILS UNEQUAL. 3 PER MAX TRANSFER FROM CHAIR TO BED c GAIT BELT. MEDS WHOLE IN [place]URT. HEP DRIP INFUSING. GAVE TYLENOL FOR CHRONIC LOW BACK PAIN, PT REPORTED RELIEF. AWAITING PLACEMENT. CALL LIGHT IN REACH.
--- NOTE | 2020-08-14 12:12 | NUR ---
PATIENTS MOM, DOM, WHO IS ON LIST OF PEOPLE WE CAN TALK TO, UPDATED ON CONDITION. STS INSURANCE OK'D AND I WILL LET LUI KNOW.
--- NOTE | 2020-08-14 15:34 | NUR ---
08/14/20- spoke with Christine at [facility]. Faxed over PASRR, COVID results, Insurance Authorization and facesheet. They have bed available for pt. They are not able to take the pt while she is on heparin drip, notified Dr. Maurer of this and she is planning on switching pt over to oral medication. Notified of [facility]y's request for transport at 9am. If she is ok with this, will set up transportation through [facility] for this time. -anna Spoke with mom today, updated her that there has been communication with [facility] and that we are faxing over pt information for them. She requested that we call her on her phone with updates. -anna
--- NOTE | 2020-08-14 15:54 | NUR ---
ULTRASOUND DONE AND TECH TO CALL . PATIENT TO BE D'C TOMORROW AT 9AM WITH [facility] TAKING HER TO [facility] IN [place].
--- NOTE | 2020-08-14 16:12 | NUR ---
ALERT. ORIENTED. REQUIRES A LOT OF CUES AND VERY LITTLE DISTRACTION FOR HER TO ACCOMPLISH SMALL FEATS ; SUCH , STANDING, EATTING ETC. 2 PERSON ASSIST TO BSC OR RECLINER. HAD ULTRASOUND LEFT LEG AND MD TO DECIDE IF CAN GO ON P.O. BLOOD THINNER. ABLE TO MAKE NEEDS KNOWN. UNLABORED RESPIRATIONS. IV HEPARIN INFUSING. WCTM
--- NOTE | 2020-08-15 06:08 | NUR ---
SHIFT SUMMARY PT HAS RESTED OFF AND ON THIS SHIFT. OCCASIONAL BACK PAIN THAT IS RELIEVED WITH BENGAY AND TYLENOL. PT IS A/OX4, AND PLESANT WITH CARE. PT HAD BM THIS SHIFT, AND HAS HAD INCONTINENT VOIDS. LEFT SIDED WEAKNESS REMAINS, PT SLOW TO RESPOND AT TIMES. NO ACUTE CHANGES IN ASSESSMENT. PT TO DC TO SNF IN [place] TODAY. BED IN LOWEST POSITION, CALL LIGHT WITHIN REACH.
--- NOTE | 2020-08-15 08:11 | NUR ---
NOTIFIED HEART RATE 175. STAT EKG. NO SYMPTOMS. TRANSPORT NOT CANCELLED AT THIS TIME.
--- NOTE | 2020-08-15 08:30 | NUR ---
CALLED PCU TECH TO SEND STAT TELE BOX. EKG DONE. EKG KEPT HOOKED UP FOR ADENOSINE.
--- NOTE | 2020-08-15 08:45 | NUR ---
PER PCU TECH HEART RATE 112 ST. PATIENT HAD NO SYMPTOMS EXCEPT LITTLE FLUSH AFTER MED PUSH. TM
--- NOTE | 2020-08-15 13:43 | NUR ---
BEDSIDE REPORT GIVEN TO AILEEN RAI IN PCU RM16. PATIENT DENIES ANY DISCOMFORT . ANSWER ALL QUESTIONS.
--- NOTE | 2020-08-15 17:09 | NUR ---
08/15/20- pt was scheduled to discharge today but prior to discharge, pt went into [facility]. Rapid response was called on pt. She was given medication and transport/discharge was called off. Pt was moved down to PCU floor. Contacted [facility] and they are still willing to have pt if stable. Set up transport for tomorrow to [facility]. Updated pt's mom and visited with pt. She was sitting up in bed and had conversation. Heart rate monitor showed in normal range. Pt agreeable with plan to d/c tomorrow. Her mom will come in to go over d/c instructions. -anna
--- NOTE | 2020-08-15 18:05 | NUR ---
SHIFT SUMMARY- PT HR HAS REMAINED STABLE SINCE ARRIVAL IN PCU. PT ON TELE NO EVENETS NOTED SINCE TRANSFER. PLAN IS FOR POSSIBLE DC TOMORROW IF PT MAINTAINS CURRENT STATUS. PT ALERT AND ORIENTED X3. BLOOD CLOT IN THE LEFT LEG PER REPORT. LEFT LEG MORE SWOLLEN THAN THE RIGHT. LEFT ARM FLACID SOME GROSS MOVEMENT IN THE LEFT LEG. PT IN BED CALL LIGHT IN REACH. FAMILY NOTIFIED OF TRANSFER TO PCU. VITALS HAVE REMAINED STABLE SINCE ARRIVAL. NO S&S OF DISTRESS NOTED. WILL PASS ON IN BEDSIDE REPORT TO NIGHT RN.
--- NOTE | 2020-08-15 19:20 | NUR ---
pt rapid response today. plan is monitor and hopefully dc tomorrow
--- NOTE | 2020-08-15 21:00 | NUR ---
ASSUMED CARE RECEIVED REPORT FROM CECELIA GUAMAN
[2020-08-16 05:17] LABS: BASOPHILS ABSOLUTE AUTO 0.09 K/mm3 (0.00-0.23); BASOPHILS PERCENT AUTO 1 % (0-2); EOSINOPHILS ABSOLUTE AUTO 0.56 K/mm3 (0.00-0.68); EOSINOPHILS PERCENT AUTO 5 % (0-6); Hematocrit 35.6 % (33.0-51.0); Hemoglobin 10.1 g/dL (11.5-16.0); IMMATURE GRAN ABSOLUTE AUTO 0.16 K/mm3 (0.00-0.10); IMMATURE GRAN PERCENT AUTO 2 % (0-1); LYMPHOCYTES ABSOLUTE AUTO 2.67 K/mm3 (0.84-5.20); LYMPHOCYTES PERCENT AUTO 26 % (21-46); MONOCYTES ABSOLUTE AUTO 0.94 K/mm3 (0.16-1.47); MONOCYTES PERCENT AUTO 9 % (4-13); Mean Corpuscular HGB 22.7 pg (26.0-34.0); Mean Corpuscular HGB Conc 28.4 g/dL (31.5-36.5); Mean Corpuscular Volume 80 fL (80-100); Mean Platelet Volume 8.5 fL (9.1-12.4); NEUTROPHILS ABSOLUTE AUTO 6.06 K/mm3 (1.96-9.15); NEUTROPHILS PERCENT AUTO 58 % (41-73); NRBC ABSOLUTE 0.03 K/mm3 (0.00-0.02); NRBC Auto 0.3 /100 WBC (0.0-0.2); Platelet Count 725 K/mm3 (150-400); RDW Coefficient Variation 29.5 % (11.7-14.2); RDW Standard Deviation 79.8 fL (35.1-46.3); Red Blood Cell Count 4.44 M/mm3 (3.80-5.20); White Blood Cell Count 10.48 K/mm3 (4.00-11.30)
--- NOTE | 2020-08-16 05:30 | NUR ---
SHIFT SUMMARY PT ALERT AND ORIENTED X 4. SLOW TO RESPOND. PT TURNED Q 2 HRS. HR STABLE. BP STABLE. OXYGEN SATURATION MAINTAINED ABOVE 92% ON RA. BED ALARM IN PLACE FOR SAFETY. WILL CONTINUE TO MONITOR UNTIL REPORT GIVEN TO DAYSHIFT RN.
[2020-08-16 05:40] LABS: Anion Gap 7 mmol/L (6-16); Blood Urea Nitrogen 16 mg/dL (8-24); Bun/Creatinine Ratio 18.3 (12.0-20.0); CO2, Blood 27 mmol/L (21-32); Calcium, Blood 9.7 mg/dL (8.5-10.1); Chloride, Blood 104 mmol/L (98-108); Creatinine, Blood 0.87 mg/dL (0.40-1.00); Glomerular Filtration Rate >60 (60-); Glucose, Blood 94 mg/dL (70-99); Magnesium, Blood 2.1 mg/dL (1.6-2.4); Potassium, Blood 4.4 mmol/L (3.5-5.5); Sodium, Blood 138 mmol/L (136-145)
[2020-08-16] MEDS ORDERED: ACET325 PO (09:06)
[2020-08-16] MEDS ORDERED: AMOX875 PO (09:06)
[2020-08-16] MEDS ORDERED: ELIQUIS5 M4 PO (09:07)
[2020-08-16] MEDS ORDERED: ATOR40TA PO (09:08)
[2020-08-16] MEDS ORDERED: ASPI81CH PO (09:08)
[2020-08-16] MEDS ORDERED: BUPR150ER PO (09:10)
[2020-08-16] MEDS ORDERED: FAMO20 PO (09:10)
[2020-08-16] MEDS ORDERED: MIRALAX17 GM PO (09:11)
[2020-08-16] MEDS ORDERED: SENN187 PO (09:11)
[2020-08-16] MEDS ORDERED: SPIR25 PO (09:11)
--- NOTE | 2020-08-16 10:12 | NUR ---
PATIENT ALERT AND ORIENTED, DENIES PAIN/DISCOMFORT. PATIENT AND PATIENT'S MOTHER PROVIDED DISCHARGE INFO REGARDING FOLLOW UP PLANS, REASONS TO CALL DOCTOR OR RETURN TO THE HOSPITAL, AND MEDICATION INFORMATION. VERBALIZED UNDERSTANDING, VSS. PATIENT LEFT VIA WHEELCHAIR TRANSPORT.
--- NOTE | 2020-08-16 15:27 | NUR ---
REPORT GIVEN TO BEATRICE RAI AT ACCEPTING FACILITY [facility].
== END 2020-08-16 09:47 | DRG 64 ==
LOC: ER 08:56 → MEDS 11:15 → PCU 11:15 → MEDS 11:15 → PCU 13:14 → MEDS 07-31 19:06 → PCU 08-15 13:21
PROVIDERS: Emergency Medicine; Family Medicine; Hospitalist; Internal Medicine; Psychiatry & Neurology Neurology; Student in an Organized Health Care Education/Training Program; ADMIT Internal Medicine
DX: I63.031 Cerebral infarction due to thrombosis of right carotid artery (principal); G93.6 Cerebral edema; G81.94 Hemiplegia, unspecified affecting left nondominant side; I82.412 Acute embolism and thrombosis of left femoral vein; I82.432 Acute embolism and thrombosis of left popliteal vein; I82.442 Acute embolism and thrombosis of left tibial vein; I82.452 Acute embolism and thrombosis of left peroneal vein; N39.0 Urinary tract infection, site not specified; I47.1 Supraventricular tachycardia; Z20.822 Contact with and (suspected) exposure to COVID-19; D50.9 Iron deficiency anemia, unspecified; R73.9 Hyperglycemia, unspecified; E03.9 Hypothyroidism, unspecified; F17.210 Nicotine dependence, cigarettes, uncomplicated; I27.20 Pulmonary hypertension, unspecified; I34.0 Nonrheumatic mitral (valve) insufficiency; E66.01 Morbid (severe) obesity due to excess calories; F43.10 Post-traumatic stress disorder, unspecified; Z68.36 Body mass index [BMI] 36.0-36.9, adult; G43.909 Migraine, unspecified, not intractable, without status migrainosus; D72.829 Elevated white blood cell count, unspecified; B95.2 Enterococcus as the cause of diseases classified elsewhere; F41.8 Other specified anxiety disorders
CPT/HCPCS: 0241U; 36415; 51702; 70450; 70496; 70498; 70551; 71045; 73030; 80048; 80053; 80061; 81001; 81240; 82272; 82274; 82550; 82553; 82607; 82728; 82746; 83036; 83090; 83540; 83550; 83735; 84100; 84443; 84702; 85025; 85045; 85240; 85300; 85303; 85306; 85307; 85610; 85613; 85651; 85730; 85732; 86038; 86146; 86147; 87077; 87086; 87186; 92507; 92523; 92526; 92610; 93005; 93010; 93306; 93971; 97110; 97112; 97129; 97163; 97166; 97530; 97535; 99285-25; A9270; J0153; J1644; J1650; J2405; J2916; J3480; J7030; J7050; Q2038; Q9967

== ENCOUNTER → 2021-02-10 | Outpatient (CLI) | payer OTHER ==
[~2021-02-10] MED LIST: ACET325 PO; AMOX875 PO; ASPI81CH PO; ATOR40TA PO; BUPR150ER PO; BUPROPION XL150 M1 PO; EFFEXOR XR150 MG PO; ELIQUIS5 M4 PO; FAMO20 PO; MIRALAX17 GM PO; SENN187 PO; SPIR25 PO; SYNTHROID88 MCG PO
[2021-02-11 00:49] LABS: BASOPHILS ABSOLUTE AUTO 0.08 K/mm3 (0.00-0.23); BASOPHILS PERCENT AUTO 1 % (0-2); EOSINOPHILS ABSOLUTE AUTO 0.44 K/mm3 (0.00-0.68); EOSINOPHILS PERCENT AUTO 5 % (0-6); Hematocrit 41.2 % (33.0-51.0); Hemoglobin 13.1 g/dL (11.5-16.0); IMMATURE GRAN ABSOLUTE AUTO 0.02 K/mm3 (0.00-0.10); IMMATURE GRAN PERCENT AUTO 0 % (0-1); LYMPHOCYTES ABSOLUTE AUTO 2.85 K/mm3 (0.84-5.20); LYMPHOCYTES PERCENT AUTO 29 % (21-46); MONOCYTES ABSOLUTE AUTO 1.04 K/mm3 (0.16-1.47); MONOCYTES PERCENT AUTO 11 % (4-13); Mean Corpuscular HGB 28.1 pg (26.0-34.0); Mean Corpuscular HGB Conc 31.8 g/dL (31.5-36.5); Mean Corpuscular Volume 88 fL (80-100); Mean Platelet Volume 9.8 fL (9.1-12.4); NEUTROPHILS ABSOLUTE AUTO 5.26 K/mm3 (1.96-9.15); NEUTROPHILS PERCENT AUTO 54 % (41-73); Platelet Count 365 K/mm3 (150-400); RDW Coefficient Variation 13.8 % (11.7-14.2); Red Blood Cell Count 4.67 M/mm3 (3.80-5.20); White Blood Cell Count 9.69 K/mm3 (4.00-11.30)
[2021-02-11 01:00] LABS: Anion Gap 8 mmol/L (6-16); Blood Urea Nitrogen 24 mg/dL (8-24); Bun/Creatinine Ratio 42.3 (12.0-20.0); CO2, Blood 28 mmol/L (21-32); Calcium, Blood 9.1 mg/dL (8.5-10.1); Chloride, Blood 105 mmol/L (98-108); Creatinine, Blood 0.57 mg/dL (0.40-1.00); Glomerular Filtration Rate >60 (60-); Glucose, Blood 89 mg/dL (70-99); Potassium, Blood 3.6 mmol/L (3.5-5.5); Sodium, Blood 141 mmol/L (136-145)
== END | disposition home or self-care (01) ==
LOC: EDSTATUS 11:11 → LAB UVN 22:00
PROVIDERS: Family Medicine
DX: I63.89 Other cerebral infarction (principal)
CPT/HCPCS: 80048; 85025

== ENCOUNTER → 2021-04-02 | Outpatient (CLI) | payer OTHER ==
[2021-04-03 10:38] LABS: Candida species (DNA Probe) Negative (NEGATIVE); G. vaginalis (DNA Probe) Positive (NEGATIVE); T. vaginalis (DNA Probe) Negative (NEGATIVE)
[2021-04-04 10:11] LABS: CHLAMYDIA BY NAA Negative (Negative); GONOCOCCUS BY NAA Negative (Negative); TRICH VAG BY NAA Negative (Negative)
== END | disposition home or self-care (01) ==
LOC: LAB 16:30 → LAB SHORT 16:30
PROVIDERS: Family Medicine
DX: N89.8 Other specified noninflammatory disorders of vagina (principal)
CPT/HCPCS: 87480; 87491; 87510; 87591; 87660; 87661

== ENCOUNTER 2021-09-19 15:18 | Emergency (ER) | payer OTHER ==
[~2021-09-19] VITALS: Ht 162.6 cm; Wt 86.2 kg
== END 2021-09-19 16:50 | disposition home or self-care (01) ==
LOC: ER 15:18
DX: S09.90XA Unspecified injury of head, initial encounter (principal); F17.200 Nicotine dependence, unspecified, uncomplicated; Z86.73 Personal history of transient ischemic attack (TIA), and cerebral infarction without residual deficits; Z88.2 Allergy status to sulfonamides; Z88.1 Allergy status to other antibiotic agents; Z79.899 Other long term (current) drug therapy; Z79.82 Long term (current) use of aspirin; W19.XXXA Unspecified fall, initial encounter
CPT/HCPCS: 70450; 99283-25

== ENCOUNTER 2022-01-14 11:29 | Emergency (ER) | payer OTHER ==
[~2022-01-14] VITALS: Ht 165.1 cm; Wt 70.3 kg
== END 2022-01-14 13:12 | disposition home or self-care (01) ==
LOC: ER 11:29
DX: S09.90XA Unspecified injury of head, initial encounter (principal); F17.200 Nicotine dependence, unspecified, uncomplicated; W22.09XA Striking against other stationary object, initial encounter; Z79.899 Other long term (current) drug therapy; Z79.82 Long term (current) use of aspirin; Z79.01 Long term (current) use of anticoagulants; Z88.1 Allergy status to other antibiotic agents; Z88.2 Allergy status to sulfonamides
CPT/HCPCS: 70450

== ENCOUNTER → 2022-04-25 | Outpatient (CLI) | payer OTHER ==
[2022-04-26 13:50] LABS: Candida species (DNA Probe) Negative (NEGATIVE); G. vaginalis (DNA Probe) Negative (NEGATIVE); T. vaginalis (DNA Probe) Negative (NEGATIVE)
== END | disposition home or self-care (01) ==
LOC: LAB SHORT 11:30 → LAB 11:30
PROVIDERS: Family Medicine
DX: N89.8 Other specified noninflammatory disorders of vagina (principal)
CPT/HCPCS: 87480; 87510; 87660

== ENCOUNTER 2023-07-09 21:20 | Emergency (ER) | payer OTHER ==
[~2023-07-09] VITALS: Ht 165.1 cm; Wt 98.0 kg
[~2023-07-09 21:20] MED LIST changes: +BACL20; +LORA10ER PO; +MULTI-VITAMIN1 EAC2 PO; +NEURONTIN300 MG PO
[2023-07-09 22:00] VITALS: BP 98/65
[2023-07-09 22:38] LABS: BASOPHILS ABSOLUTE AUTO 0.08 K/mm3 (0.00-0.23); BASOPHILS PERCENT AUTO 1 % (0-2); EOSINOPHILS ABSOLUTE AUTO 0.42 K/mm3 (0.00-0.68); EOSINOPHILS PERCENT AUTO 4 % (0-6); Hematocrit 41.6 % (33.0-51.0); Hemoglobin 14.3 g/dL (11.5-16.0); IMMATURE GRAN ABSOLUTE AUTO 0.07 K/mm3 (0.00-0.10); IMMATURE GRAN PERCENT AUTO 1 % (0-1); LYMPHOCYTES ABSOLUTE AUTO 2.27 K/mm3 (0.84-5.20); LYMPHOCYTES PERCENT AUTO 21 % (21-46); MONOCYTES ABSOLUTE AUTO 0.92 K/mm3 (0.16-1.47); MONOCYTES PERCENT AUTO 9 % (4-13); Mean Corpuscular HGB 29.7 pg (26.0-34.0); Mean Corpuscular HGB Conc 34.4 g/dL (31.5-36.5); Mean Corpuscular Volume 86 fL (80-100); Mean Platelet Volume 9.6 fL (9.1-12.4); NEUTROPHILS ABSOLUTE AUTO 6.93 K/mm3 (1.96-9.15); NEUTROPHILS PERCENT AUTO 65 % (41-73); Platelet Count 320 K/mm3 (150-400); RDW Coefficient Variation 13.2 % (11.7-14.2); RDW Standard Deviation 40.8 fL (35.1-46.3); Red Blood Cell Count 4.82 M/mm3 (3.80-5.20); White Blood Cell Count 10.69 K/mm3 (4.00-11.30)
[2023-07-09 22:51] LABS: Albumin, Blood 3.6 g/dL (3.4-5.0); Albumin/Globulin Ratio 0.8 (0.8-1.8); Bilirubin, Total 0.5 mg/dL (0.1-1.0); Bun/Creatinine Ratio 27.2 (12.0-20.0); Calcium, Blood 9.1 mg/dL (8.5-10.1); Creatinine, Blood 0.62 mg/dL (0.40-1.00); Globulin, Blood 4.4 g/dL (2.2-4.0); Potassium, Blood 4.6 mmol/L (3.5-5.5)
[2023-07-10 00:51] LABS: Source, Urine Clean Catch
[2023-07-10 01:42] LABS: Bilirubin, Urine Neg (Neg); Blood, Urine 2+ (Neg); Glucose Qualitative, Urine Neg (Neg); Ketones, Urine Neg (Neg); Leukocyte Esterase, Urine 1+ (Neg); Nitrite, Urine Neg (Neg); Protein, Urine Neg (Neg); Specific Gravity, Urine 1.025 (1.003-1.022); Urobilinogen, Urine NORM (Normal)
[2023-07-10 02:05] LABS: Appearance, Urine Hazy (Clear); Bacteria Mod /hpf; Calcium Oxalate Crystals Few /hpf; Color, Urine Yellow (P-Yellow); Red Blood Cells, Urine 0-2 /hpf (0-2); Squamous Epithelial Cells Few /hpf (Few)
[2023-07-10] MEDS ORDERED: CEPH500 PO (04:14)
== END 2023-07-10 04:36 | disposition home or self-care (01) ==
LOC: ER 21:20
PROVIDERS: Student in an Organized Health Care Education/Training Program
DX: N39.0 Urinary tract infection, site not specified (principal); Z88.2 Allergy status to sulfonamides; Z88.1 Allergy status to other antibiotic agents; Z79.899 Other long term (current) drug therapy; E03.9 Hypothyroidism, unspecified; F17.200 Nicotine dependence, unspecified, uncomplicated
CPT/HCPCS: 80053; 81001; 83690; 85025; 87086; 87147; 99284; A9270

== ENCOUNTER → 2024-03-09 | Outpatient (CLI) | payer OTHER ==
[~2024-03-09] MED LIST changes: +CEPH500 PO
[2024-03-09 12:30] LABS: BASOPHILS ABSOLUTE AUTO 0.08 K/mm3 (0.00-0.23); BASOPHILS PERCENT AUTO 1 % (0-2); EOSINOPHILS ABSOLUTE AUTO 0.49 K/mm3 (0.00-0.68); EOSINOPHILS PERCENT AUTO 6 % (0-6); Hematocrit 42.8 % (33.0-51.0); Hemoglobin 14.2 g/dL (11.5-16.0); IMMATURE GRAN ABSOLUTE AUTO 0.04 K/mm3 (0.00-0.10); IMMATURE GRAN PERCENT AUTO 1 % (0-1); LYMPHOCYTES ABSOLUTE AUTO 1.62 K/mm3 (0.84-5.20); LYMPHOCYTES PERCENT AUTO 19 % (21-46); MONOCYTES ABSOLUTE AUTO 0.72 K/mm3 (0.16-1.47); MONOCYTES PERCENT AUTO 9 % (4-13); Mean Corpuscular HGB 30.3 pg (26.0-34.0); Mean Corpuscular HGB Conc 33.2 g/dL (31.5-36.5); Mean Corpuscular Volume 91 fL (80-100); Mean Platelet Volume 9.1 fL (9.1-12.4); NEUTROPHILS ABSOLUTE AUTO 5.55 K/mm3 (1.96-9.15); NEUTROPHILS PERCENT AUTO 65 % (41-73); Platelet Count 325 K/mm3 (150-400); RDW Coefficient Variation 13.4 % (11.7-14.2); RDW Standard Deviation 44.1 fL (35.1-46.3); Red Blood Cell Count 4.69 M/mm3 (3.80-5.20)
[2024-03-09 12:44] LABS: Albumin, Blood 3.6 g/dL (3.4-5.0); Albumin/Globulin Ratio 0.9 (0.8-1.8); Bilirubin, Total 0.4 mg/dL (0.1-1.0); Bun/Creatinine Ratio 15.9 (12.0-20.0); Calcium, Blood 9.2 mg/dL (8.5-10.1); Creatinine, Blood 0.88 mg/dL (0.40-1.00); Total Protein, Blood 7.6 g/dL (6.4-8.2)
== END | disposition home or self-care (01) ==
LOC: LAB SHORT 12:26 → LAB 12:26
PROVIDERS: Chiropractor
DX: R07.9 Chest pain, unspecified (principal)
CPT/HCPCS: 80053; 84484; 85025

== ENCOUNTER 2024-04-23 21:32 | Emergency (ER) | payer OTHER ==
[~2024-04-23] VITALS: Ht 167.6 cm; Wt 68.0 kg
[2024-04-23 23:03] LABS: BASOPHILS ABSOLUTE AUTO 0.05 K/mm3 (0.00-0.23); BASOPHILS PERCENT AUTO 0 % (0-2); EOSINOPHILS ABSOLUTE AUTO 0.05 K/mm3 (0.00-0.68); EOSINOPHILS PERCENT AUTO 0 % (0-6); Hematocrit 53.1 % (33.0-51.0); Hemoglobin 17.4 g/dL (11.5-16.0); IMMATURE GRAN ABSOLUTE AUTO 0.04 K/mm3 (0.00-0.10); IMMATURE GRAN PERCENT AUTO 0 % (0-1); LYMPHOCYTES ABSOLUTE AUTO 0.96 K/mm3 (0.84-5.20); LYMPHOCYTES PERCENT AUTO 8 % (21-46); MONOCYTES ABSOLUTE AUTO 0.11 K/mm3 (0.16-1.47); MONOCYTES PERCENT AUTO 1 % (4-13); Mean Corpuscular HGB 30.2 pg (26.0-34.0); Mean Corpuscular HGB Conc 32.8 g/dL (31.5-36.5); Mean Corpuscular Volume 92 fL (80-100); Mean Platelet Volume 8.8 fL (9.1-12.4); NEUTROPHILS ABSOLUTE AUTO 10.22 K/mm3 (1.96-9.15); NEUTROPHILS PERCENT AUTO 90 % (41-73); Platelet Count 322 K/mm3 (150-400); RDW Coefficient Variation 13.4 % (11.7-14.2); RDW Standard Deviation 45.1 fL (35.1-46.3); Red Blood Cell Count 5.76 M/mm3 (3.80-5.20); White Blood Cell Count 11.43 K/mm3 (4.00-11.30)
[2024-04-23 23:31] LABS: Albumin, Blood 4.1 g/dL (3.4-5.0); Albumin/Globulin Ratio 0.9 (0.8-1.8); Bilirubin, Total 0.5 mg/dL (0.1-1.0); Bun/Creatinine Ratio 15.2 (12.0-20.0); Creatinine, Blood 0.99 mg/dL (0.40-1.00); Globulin, Blood 4.6 g/dL (2.2-4.0); Potassium, Blood 3.4 mmol/L (3.5-5.5); Total Protein, Blood 8.7 g/dL (6.4-8.2)
[2024-04-23] MEDS ORDERED: Loperamide HCl 2 MG Cap PO ONE (23:55)
[2024-04-24] MEDS ORDERED: LOPE2C PO (00:06)
[2024-04-24] MEDS ORDERED: ONDA4ODT MM (00:06)
[2024-04-24 00:56] VITALS: BP 103/89
== END 2024-04-24 00:57 | disposition home or self-care (01) ==
LOC: ER 21:32
PROVIDERS: Emergency Medicine
DX: R11.2 Nausea with vomiting, unspecified (principal); R19.7 Diarrhea, unspecified; E03.9 Hypothyroidism, unspecified; F41.9 Anxiety disorder, unspecified; F32.A Depression, unspecified; F17.200 Nicotine dependence, unspecified, uncomplicated; Z88.2 Allergy status to sulfonamides; Z88.1 Allergy status to other antibiotic agents; Z79.01 Long term (current) use of anticoagulants; Z79.890 Hormone replacement therapy; Z79.899 Other long term (current) drug therapy
CPT/HCPCS: 80053; 85025; 99284; A9270

== ENCOUNTER → 2024-06-02 | Outpatient (CLI) | payer OTHER ==
[~2024-06-02] MED LIST changes: +LOPE2C PO; +ONDA4ODT MM
[2024-06-03 11:58] LABS: Chlamydia Trachomatis Urine NOT DETECTED (NOT DETECT); Neisseria Gonorrhoea Urine NOT DETECTED (NOT DETECT)
== END ==
LOC: LAB 13:00 → LAB SHORT 13:00
DX: Z11.3 Encounter for screening for infections with a predominantly sexual mode of transmission (principal)
CPT/HCPCS: 87491; 87591

== ENCOUNTER → 2025-02-23 | Outpatient (CLI) | payer OTHER | LOC: LAB 15:37 → LAB SHORT 15:37 | DX: R32 Unspecified urinary incontinence (principal) | CPT/HCPCS: 87086 ==